=== PATIENT | female | born 1990 | race Caucasian/White ===

== ENCOUNTER 2023-05-25 09:31 | Outpatient (CLI) | payer BC, SELFPAY | END 2023-05-25 09:32 | disposition home or self-care (01) | LOC: NFLDREF 05-26 16:38 | PROVIDERS: Visit Provider Nurse Practitioner Family | DX: R30.0 Dysuria (principal); N39.0 Urinary tract infection, site not specified; R13.10 Dysphagia, unspecified | CPT/HCPCS: 87086 ==